=== PATIENT | male | born 1970 | race Caucasian/White ===

== ENCOUNTER 2016-07-30 14:19 | Emergency (ER) | payer BC ==
[2016-07-30 14:23] VITALS: TEMP 97.9
--- NOTE | 2016-07-30 14:42 | CPEKG ---
Heart Rate: 73 RR Interval: 822 P-R Interval: 176 QRSD Interval: 96 QT Interval: 388 QTC Interval: 428 P Mellette: 48 QRS Mellette: 23 T Wave Mellette: 65 EKG Severity - ABNORMAL ECG - EKG Impression: SINUS RHYTHM EKG Impression: PROBABLE LVH WITH SECONDARY REPOL ABNRM Electronically Signed By: Ezra Lowe 30-Jul-2016 21:18:04
--- NOTE | 2016-07-30 14:46 | EDPHY ---
H & P Stated Complaint: chest pressure for 2 wks HPI/ROS: HPI CHIEF COMPLAINT: Chest pain HISTORY OF PRESENT ILLNESS: This patient is a very pleasant 46-year-old male denies any significant medical history he is a drone pilot, he presents to the emergency room with 2 weeks of ongoing discomfort in his chest. He tells me that initially approximately 2 weeks ago he develops generalized discomfort across his chest, however over the last 5 days consult he developed this right- sided chest discomfort he describes it initially as a burning pain and now it is stabbing localized to 1 area of his right chest parasternally. He denies pleuritic pain, hemoptysis, leg swelling, calf tenderness, denies shortness of breath, denies dyspnea on exertion, denies nausea, diaphoresis, radiation of pain. He tells me that the pain is localized in 1 focal area to the right chest. He does tell me that at times it goes to his right back. No neck pain, no jaw pain. denies leg swelling, calf pain. Past Medical History: Denies significant medical history Past Surgical History: Denies significant surgical history Social History: Denies daily use of drugs, alcohol or tobacco products Family History: No significant cardiac history and family. ROS REVIEW OF SYSTEMS: A comprehensive 10 point review of systems is otherwise negative aside from elements mentioned in the history of present illness. Exam Constitutional triage nursing summary reviewed, vital signs reviewed, awake/ alert. Eyes normal conjunctivae and sclera, EOMI, PERRLA. HENT normal inspection, atraumatic, moist mucus membranes, no epistaxis, neck supple/ no meningismus, no raccoon eyes. Respiratory clear to auscultation bilaterally, normal breath sounds, no respiratory distress, no wheezing. Cardiovascular Chest wall: Nontender to palpation, rate normal, regular rhythm, no murmur, no edema, distal pulses normal. Gastrointestinal soft, non-tender, no rebound, no guarding, normal bowel sounds, no distension, no pulsatile mass. Genitourinary no CVA tenderness. Musculoskeletal no midline vertebral tenderness, full range of motion, no calf swelling, no tenderness of extremities, no meningismus, good pulses, neurovascularly intact. Skin pink, warm, & dry, no rash, skin atraumatic. Neurologic awake, alert and oriented x 3, AAOx3, moves all 4 extremities equally, motor intact, sensory intact, CN II-XII intact, normal cerebellar, normal vision, normal speech. Psychiatric normal mood/affect. Heme/Lymph/Immune no lymphadenopathy. Differential diagnosis includes but is not limited to: atypical chest pain, pleurisy, ACS, pneumothorax, pneumonia, pulmonary embolism, aortic dissection, congestive heart failure, tumor, musculoskeletal pain, esophageal pain, GERD, peptic ulcer disease, pancreatitis Medical Decision Making: this patient had an IV established obtain blood work, will check cardiac marker however of this is a very atypical presentation of cardiac chest pain. Check EKG, chest x-ray D-dimer is he is a drone pilot at risk for DVT/PE. Will also re-evaluate. Re-evaluation: EKG interpretation by me on record in [employer] system. Impression time of EKG 14 40, this is sinus rhythm rate of 73, no acute ischemic changes, no signs of arrhythmia, no T-wave abnormalities, no ST elevation or ST depression. Unremarkable EKG LVH is present. 1704; re-examination at this time patient is resting comfortably chest pain- free. His initial EKG, troponin are negative. His blood work has been reviewed. EKG interpretation by me on record in [employer] system. Impression Time of EKG 18 41, this is sinus rhythm rate of 80, no acute ischemic changes specifically no ST elevation ST depression T-wave abnormality prolonged intervals. A normal-appearing EKG unchanged from previous EKG. 1921: Re-evaluation at this time patient is resting comfortably no acute distress. Chest pain-free. No complaints. Repeat troponin and repeat EKG are unremarkable. Patient is comfortable being discharged. Negative trop x2 unlikely to be ACS given right-sided, negative troponins 4 hours spaced apart, and complaints of chest pain for 2 weeks. And worse constant over the last 5 days without relief. Unlikely to be ACS were -2 troponin -2 normal EKGs. For comfortably discharge follow-up Cardiology outpatient. Source: Patient - Personal History Current Tetanus/Diphtheria Vaccine: Unsure Current Tetanus Diphtheria and Acellular Pertussis (TDAP): Unsure - Medical/Surgical History Hx Asthma: No Hx Chronic Respiratory Disease: No Hx Diabetes: No Hx Cardiac Disease: No Hx Renal Disease: No Hx Cirrhosis: No Hx Alcoholism: No Hx HIV/AIDS: No Hx Splenectomy or Spleen Trauma: No - Social History Smoking Status: Former smoker Constitutional: Initial Vital Signs Temperature (C) 36.6 C 07/30/16 14:21 Heart Rate 89 07/30/16 14:21 Respiratory Rate 16 07/30/16 14:21 Blood Pressure 168/112 H 07/30/16 14:21 O2 Sat (%) 98 07/30/16 14:21 O2 Delivery Mode Nasal Cannula O2 (L/minute) 2 Allergies/Adverse Reactions: No Known Allergies Allergy (Unverified 07/30/16 14:23) Medical Decision Making - Data Points Laboratory Results: Laboratory Results 07/30/16 15:05 07/30/16 15:05 07/30/16 07/30/16 18:44 15:05 WBC 5.92 10^3/uL (3.80-9.50) RBC 5.70 10^6/uL (4.40-6.38) Hgb 18.4 H g/dL (13.7-17.5) Hct 51.7 H % (40.0-51.0) MCV 90.7 fL (81.5-99.8) MCH 32.3 pg (27.9-34.1) MCHC 35.6 g/dL (32.4-36.7) RDW 12.3 % (11.5-15.2) Plt Count 256 10^3/uL (150-400) MPV 9.2 fL (8.7-11.7) Neut % (Auto) 47.7 % (39.3-74.2) Lymph % (Auto) 34.0 % (15.0-45.0) Pitkin % (Auto) 14.0 H % (4.5-13.0) Eos % (Auto) 3.4 % (0.6-7.6) Baso % (Auto) 0.7 % (0.3-1.7) Nucleat RBC Rel Count 0.0 % (0.0-0.2) Absolute Neuts (auto) 2.83 10^3/uL (1.70-6.50) Absolute Lymphs (auto) 2.01 10^3/uL (1.00-3.00) Absolute Monos (auto) 0.83 H 10^3/uL (0.30-0.80) Absolute Eos (auto) 0.20 10^3/uL (0.03-0.40) Absolute Basos (auto) 0.04 10^3/uL (0.02-0.10) Absolute Nucleated RBC 0.00 10^3/uL (0-0.01) Immature Gran % 0.2 % (0.0-1.1) Immature Gran # 0.01 10^3/uL (0.00-0.10) PT 12.7 SEC (12.0-15.0) INR 0.96 (0.83-1.16) APTT 30.9 SEC (23.0-38.0) D-Dimer < 0.27 ug/mLFEU (0.00-0.50) Sodium 143 mEq/L (134-144) Potassium 4.4 mEq/L (3.5-5.2) Chloride 103 mEq/L (97-110) Carbon Dioxide 27 mEq/l (22-31) Anion Gap 13 mEq/L (8-16) BUN 21 mg/dL (7-23) Creatinine 1.1 mg/dL (0.7-1.3) Estimated GFR > 60 Glucose 87 mg/dL (70-100) Calcium 9.7 mg/dL (8.5-10.4) Magnesium 2.2 mg/dL (1.6-2.3) Total Bilirubin 1.1 mg/dL (0.1-1.4) Conjugated Bilirubin 0.5 mg/dL (0.0-0.5) Unconjugated Bilirubin 0.6 mg/dL (0.0-1.1) AST 27 IU/L (17-59) ALT 46 IU/L (21-72) Alkaline Phosphatase 56 IU/L (38-126) Creatine Kinase 74 IU/L (0-224) CK-MB (CK-2) Fraction 1.03 ng/mL (0-3.19) Troponin I < 0.012 ng/mL < 0.012 ng/mL (0-0.034) (0-0.034) NT-Pro-B Natriuret Pep 26 pg/mL (0-125) Total Protein 7.5 g/dL (6.3-8.2) Albumin 4.8 g/dL (3.5-5.0) Lipase 76.0 IU/L (23-300) Medications Given: Discontinued Medications Aspirin (Aspirin) 324 mg PO EDNOW ONE Stop: 07/30/16 14:53 Last Admin: 07/30/16 15:16 Dose: 324 mg Sodium Chloride (Ns) 1,000 mls @ 0 mls/hr IV ONCE ONE PRN Reason: As Directed Stop: 07/30/16 14:53 Last Admin: 07/30/16 15:17 Dose: 1,000 mls Departure - Departure Disposition: Home, Routine, Self-Care Clinical Impression: Atypical chest pain Condition: Good Instructions: Thoracic Pain (ED) Additional Instructions: 1. Stay well-hydrated drink lots of fluids. 2. Return to the emergency room if there is any worsening symptoms questions or concerns. Specifically worsening chest pain shortness of breath. 3. Try a trial of antacids see if this helps her pain. 4. Please follow up with Cardiology. Referrals: NONE *PRIMARY CARE P,. [Primary Care Provider] - As per Instructions Thiago Gaston MD [Medical Doctor] - As per Instructions
[2016-07-30] MEDS ORDERED: ASPIRIN 81 MG CHEWABLE TAB PO ONE (14:52)
[2016-07-30] MEDS ORDERED: NS 1,000 ML IV ONE (14:52)
[2016-07-30 15:20] LABS: % IMMATURE GRANULYOCYTES 0.2 % (0.0-1.1); ABSOLUTE IMMATURE GRANULOCYTES 0.01 10^3/uL (0.00-0.10); ADD DIFF? NO; ADD MORPH? NO; ADD SCAN? NO; ATYPICAL LYMPHOCYTE FLAG 10 (0-99); FRAGMENT RBC FLAG 0 (0-99); HEMATOCRIT 51.7 % (40.0-51.0); HEMOGLOBIN 18.4 g/dL (13.7-17.5); LEFT SHIFT FLG 0 (0-99); LIPEMIA HEMOLYSIS FLAG 90 (0-99); MEAN CELL HEMOGLOBIN 32.3 pg (27.9-34.1); MEAN CELL HEMOGLOBIN CONCENTR. 35.6 g/dL (32.4-36.7); MEAN CELL VOLUME 90.7 fL (81.5-99.8); MEAN PLATELET VOLUME 9.2 fL (8.7-11.7); PLATELET CLUMPS FLAG 0 (0-99); PLATELET COUNT 256 10^3/uL (150-400); RED CELL DISTRIBUTION WIDTH 12.3 % (11.5-15.2)
[2016-07-30 15:29] LABS: INR 0.96 (0.83-1.16); PROTIME(PATIENT) 12.7 SEC (12.0-15.0)
[2016-07-30 15:30] LABS: APTT 30.9 SEC (23.0-38.0)
[2016-07-30 15:42] LABS: ALANINE AMINOTRANSFERASE 46 IU/L (21-72); ALBUMIN 4.8 g/dL (3.5-5.0); ALKALINE PHOSPHATASE 56 IU/L (38-126); ANION GAP 13 mEq/L (8-16); ASPARTATE AMINOTRANSFERASE 27 IU/L (17-59); BILIRUBIN,TOTAL 1.1 mg/dL (0.1-1.4); BILIRUBIN-CONJUGATED 0.5 mg/dL (0.0-0.5); BILIRUBIN-UNCONJUGATED 0.6 mg/dL (0.0-1.1); CALCIUM 9.7 mg/dL (8.5-10.4); CARBON DIOXIDE 27 mEq/l (22-31); CHLORIDE 103 mEq/L (97-110); CREATININE 1.1 mg/dL (0.7-1.3); GLOMERULAR FILTRATION RATE > 60; GLUCOSE 87 mg/dL (70-100); MAGNESIUM 2.2 mg/dL (1.6-2.3); POTASSIUM 4.4 mEq/L (3.5-5.2); SODIUM 143 mEq/L (134-144); TOTAL PROTEIN 7.5 g/dL (6.3-8.2)
--- NOTE | 2016-07-30 15:46 | DX ---
PA and Lateral Chest July 30, 2016 Clinical Indications: Right-sided chest pain for 3 weeks. Findings: The lungs are clear, and no masses are found. The heart and pulmonary vessels are normal. There are no pleural effusions and no pneumothorax. The bones are unremarkable for this age. There is elevation of the left hemidiaphragm. Impression: 1. No radiographic evidence to explain the patient's right-sided chest pain. 2. Elevation of the left hemidiaphragm.
[2016-07-30 15:53] LABS: CREATINE KINASE-MB FRACTION 1.03 ng/mL (0-3.19); TROPONIN I < 0.012 ng/mL (0-0.034)
--- NOTE | 2016-07-30 18:44 | CPEKG ---
Heart Rate: 80 RR Interval: 750 P-R Interval: 192 QRSD Interval: 86 QT Interval: 400 QTC Interval: 462 P Overton: 58 QRS Over[place]: 31 T Wave Over[place]: 59 EKG Severity - NORMAL ECG - EKG Impression: SINUS RHYTHM Electronically Signed By: Ezra Lowe 30-Jul-2016 21:18:04
[2016-07-30 19:43] VITALS: BP 134/107; PULSE 70; RESP 18; O2SAT 96
== END 2016-07-30 19:41 | disposition home or self-care (01) ==
DX: R07.89 Other chest pain (principal); Z87.891 Personal history of nicotine dependence